=== PATIENT | male | born 1955 | race Caucasian/White ===

== ENCOUNTER 2022-03-29 16:51 | Emergency (ER) | payer OTHER ==
[~2022-03-29] VITALS: Ht 167 cm; Wt 72.0 kg
[2022-03-29 17:58] LABS: BASOPHILS % (AUTO) 0 % (0-10); EOSINOPHILS # (AUTO) 0.1 10^3/uL (0.0-0.3); EOSINOPHILS % (AUTO) 1 % (0-10); HEMATOCRIT 41 % (40-54); HEMOGLOBIN 13.9 g/dL (13.3-17.7); LYMPHOCYTES # (AUTO) 1.2 10^3/uL (1.0-4.0); LYMPHOCYTES % (AUTO) 15 % (12-44); MEAN CORPUSCULAR HEMOGLOBIN 31 pg (25-34); MEAN CORPUSCULAR HGB CONC 34 g/dL (32-36); MEAN CORPUSCULAR VOLUME 92 fL (80-99); MEAN PLATELET VOLUME 9.1 fL (9.0-12.2); MONOCYTES # (AUTO) 0.6 10^3/uL (0.0-1.0); MONOCYTES % (AUTO) 8 % (0-12); NEUTROPHILS # (AUTO) 5.9 10^3/uL (1.8-7.8); NEUTROPHILS % (AUTO) 76 % (42-75); PLATELET COUNT 190 10^3/uL (130-400); WHITE BLOOD COUNT 7.8 10^3/uL (4.3-11.0)
[2022-03-29] MEDS ORDERED: LACTATED RINGERS 1,000 ML IV ONE (18:00)
[2022-03-29] MEDS ORDERED: MECLIZINE 25 MG (ANTIVERT) TAB PO ONE (18:00)
[2022-03-29 18:04] LABS: ALBUMIN 3.7 GM/DL (3.2-4.5)
[2022-03-29 18:05] LABS: POTASSIUM 3.4 MMOL/L (3.6-5.0)
[2022-03-29 18:06] LABS: CALCIUM 8.5 MG/DL (8.5-10.1)
[2022-03-29 18:09] LABS: BILIRUBIN,TOTAL 0.6 MG/DL (0.1-1.0)
[2022-03-29 18:13] LABS: MAGNESIUM 1.9 MG/DL (1.6-2.4)
[2022-03-29 18:34] LABS: TSH (THYROID ANALYZER) 0.52 UIU/ML (0.35-4.94)
--- NOTE | 2022-03-29 18:50 | Diagnostic Imaging Report ---
EXAMINATION: CT head without contrast. TECHNIQUE: Multiple contiguous axial images were obtained through the brain without the use of intravenous contrast. All CT scans use one or more of the following dose optimizing techniques: automated exposure control, MA and/or KvP adjustment based on patient size and exam type or iterative reconstruction. HISTORY: Dizzy, Hearing loss, headache COMPARISON: None available. FINDINGS: Mild diffuse cerebral volume loss with proportional enlargement of the ventricles and sulci. No abnormal attenuation of brain parenchyma is present. No acute intracranial hemorrhage or abnormal extra-axial fluid collection is present. No hyperdense vessel. The calvarium is intact. The mastoid air cells are clear. The visualized paranasal sinuses are clear. The orbits are normal. IMPRESSION: No acute intracranial abnormality. Dictated by: Dictated on workstation # [id number]
[2022-03-29 19:13] LABS: CREATININE SERUM 0.89 MG/DL (0.60-1.30)
[2022-03-29] MEDS ORDERED: ONDANSETRON 4 MG/2 ML (SDV) Z0FRAN ONE (20:30)
[2022-03-29] MEDS ORDERED: ONDANSETRON 4 MG/2 ML (SDV) Z0FRAN IVP ONE (20:30)
[2022-03-29] MEDS ORDERED: ONDA4TAB11 SL (21:01)
[2022-03-29] MEDS ORDERED: MECL-149 PO (21:01)
--- NOTE | 2022-03-29 21:01 | ED Neurological Problem ---
General Chief Complaint: Dizziness/Syncope Stated Complaint: DIZZINESS, VOMITING Nursing Triage Note: pt states deafness in lt ear started sunday followed by dizziness and vomiting. hx of ear and sinus infections, cyst on the rt posterior neck that has moved over the past 2 weeks Source: patient, family Exam Limitations: no limitations History of Present Illness Date Seen by Provider: Mar 29, 2022 Time Seen by Provider: 17:40 Allergies and Home Medications Allergies Coded Allergies: No Known Drug Allergies (Unverified , 03/29/22) Patient Home Medication List Meclizine HCl (Meclizine HCl) 25 Mg Tablet, 25 MG PO Q6H PRN for DIZZINESS Prescribed by: RUFINO FERRELL on 03/29/222100 Ondansetron (Ondansetron Odt) 4 Mg Tab.rapdis, 4 MG SL Q4H PRN for NAUSEA/VOMITING Prescribed by: RUFINO FERRELL on 03/29/222100 Past Eoesdky-Ohlhhe-Jkoims Hx Patient Social History Tobacco Use?: No Substance use?: No Alcohol Use?: No Physical Exam Vital Signs Vital Signs - First Documented 03/29/22 17:06 Temp 36.6 Pulse 59 Resp 18 B/P (MAP) 161/83 (109) Pulse Ox 97 O2 Delivery Room Air Capillary Refill : Less Than 3 Seconds Height, Weight, BMI Height: '" Weight: lbs. oz. kg; 25.00 BMI Method: Progress/Results/Core Measures Results/Orders Lab Results Laboratory Tests Test 03/29/22 17:45 Range/Units White Blood Count 7.8 4.3-11.0 10^3/uL Red Blood Count 4.42 4.30-5.52 10^6/uL Hemoglobin 13.9 13.3-17.7 g/dL Hematocrit 41 40-54 % Mean Corpuscular Volume 92 80-99 fL Mean Corpuscular Hemoglobin 31 25-34 pg Mean Corpuscular Hemoglobin Concent 34 32-36 g/dL Red Cell Distribution Width 12.1 10.0-14.5 % Platelet Count 190 130-400 10^3/uL Mean Platelet Volume 9.1 9.0-12.2 fL Immature Granulocyte % (Auto) 0 % Neutrophils (%) (Auto) 76 H 42-75 % Lymphocytes (%) (Auto) 15 12-44 % Monocytes (%) (Auto) 8 0-12 % Eosinophils (%) (Auto) 1 0-10 % Basophils (%) (Auto) 0 0-10 % Neutrophils # (Auto) 5.9 1.8-7.8 10^3/uL Lymphocytes # (Auto) 1.2 1.0-4.0 10^3/uL Monocytes # (Auto) 0.6 0.0-1.0 10^3/uL Eosinophils # (Auto) 0.1 0.0-0.3 10^3/uL Basophils # (Auto) 0.0 0.0-0.1 10^3/uL Immature Granulocyte # (Auto) 0.0 0.0-0.1 10^3/uL Sodium Level 136 135-145 MMOL/L Potassium Level 3.4 L 3.6-5.0 MMOL/L Chloride Level 103 98-107 MMOL/L Carbon Dioxide Level 26 21-32 MMOL/L Anion Gap 7 5-14 MMOL/L Blood Urea Nitrogen 15 7-18 MG/DL Creatinine 0.89 0.60-1.30 MG/DL Estimat Glomerular Filtration Rate 95 BUN/Creatinine Ratio 17 Glucose Level 152 H 70-105 MG/DL Calcium Level 8.5 8.5-10.1 MG/DL Corrected Calcium 8.7 8.5-10.1 MG/DL Magnesium Level 1.9 1.6-2.4 MG/DL Total Bilirubin 0.6 0.1-1.0 MG/DL Aspartate Amino Transf (AST/SGOT) 21 5-34 U/L Alanine Aminotransferase (ALT/SGPT) 26 0-55 U/L Alkaline Phosphatase 69 40-136 U/L C-Reactive Protein High Sensitivity 0.05 0.00-0.50 MG/DL Total Protein 6.0 L 6.4-8.2 GM/DL Albumin 3.7 3.2-4.5 GM/DL TSH [place] Testing 0.52 0.35-4.94 UIU/ML SARS-CoV-2 RNA (RT-PCR) Not Detected Not Detecte My Orders Adriana - RUFINO PIERCE MD Cbc With Automated Diff (03/29/22 17:52) Comprehensive Metabolic Panel (03/29/22 17:52) Hs C Reactive Protein (03/29/22 17:52) Magnesium (03/29/22 17:52) Thyroid Analyzer (03/29/22 17:52) Ed Iv/Invasive Line Start (03/29/22 17:52) Ct Head Wo (03/29/22 17:52) Lactated Ringers (Lr 1000 Ml Iv Solution (03/29/22 18:00) Monitor-Rhythm Ecg Trace Only (03/29/22 17:53) Meclizine Tablet (Antivert Tablet) (03/29/22 18:00) Covid 19 Inhouse Test (03/29/22 18:38) Ondansetron Injection (Zofran Injectio (03/29/22 20:30) Ondansetron Injection (Zofran Injectio (03/29/22 20:30) Medications Given in ED Current Medications Medications Dose Ordered Sig/Claudette Route Start Time Stop Time Status Last Admin Dose Admin Lactated Ringer's 1,000 ml @ 0 mls/hr Q0M ONCE IV 03/29/22 18:00 03/29/22 18:01 DC 03/29/22 18:33 1,000 MLS/HR Meclizine HCl 25 mg ONCE ONCE PO 03/29/22 18:00 03/29/22 18:01 DC 03/29/22 18:33 25 MG Ondansetron HCl 8 mg ONCE ONCE IVP 03/29/22 20:30 03/29/22 20:31 DC 03/29/22 20:32 8 MG Vital Signs/I&O 03/29/22 17:06 Temp 36.6 Pulse 59 Resp 18 B/P (MAP) 161/83 (109) Pulse Ox 97 O2 Delivery Room Air Blood Pressure Mean: 109 Departure Impression Primary Impression: Vertigo Additional Impression: Hearing loss in left ear Qualified Codes: H91.92 - Unspecified hearing loss, left ear Disposition: HOME, SELF-CARE Condition: Improved Departure-Patient Inst. Decision time for Depature: 20:57 Referrals: PATIENCE SPARKS MD Patient Instructions: Vertigo (a Type of Dizziness) (DC), Meniere Disease Add. Discharge Instructions: Your dizziness appears to be vertigo, likely benign paroxysmal positional vertigo (BPPV). This is often treatable by Dottie maneuver. A handout is attached explaining how to do the Dottie maneuver at home. Several attempts may be necessary to cure the vertigo. Vertigo may return and the Dottie maneuver may need to be repeated. You may also treat your dizziness with meclizine purchased [id number]. Follow package instructions. If you have associated nausea, you may treat this with the Zofran (ondansetron) prescribed. This medication works quickly for nausea by dissolving under the to ngue. Please follow-up with your primary care provider soon as possible. Call tomorrow morning for an appointment. Please also follow-up with an audio visual collections coordinator (ENT) specialist as soon as possible. Dr. Sparks's contact is below for your convenience. Your hearing loss really needs to be evaluated by an ENT provider. Your hearing loss may or may not be related to the dizziness. Return to the ER if you have worsening symptoms despite following these instructions, especially if you develop additional neurologic symptoms such as increasing headache, vision changes, numbness or weakness of a body part, difficulty thinking, facial drooping, difficulty speaking, or any other notable neurologic change. Call your doctor with questions or concerns. All discharge instructions reviewed with patient and/or family. Voiced understanding. Scripts Meclizine HCl (Meclizine HCl) 25 Mg Tablet 25 MG PO Q6H PRN for DIZZINESS, #20 TAB Prov: RUFINO PIERCE MD 03/29/22 Ondansetron (Ondansetron Odt) 4 Mg Tab.rapdis 4 MG SL Q4H PRN for NAUSEA/VOMITING, #10 TAB Prov: RUFINO PIERCE MD 03/29/22 RUFINO PIERCE MD Mar 29, 2022 21:01
[2022-03-29 21:15] VITALS: BP 157/73
== END 2022-03-29 21:20 | disposition home or self-care (01) ==
LOC: EDUNIT# 16:51 → ER 16:53
DX: R42 Dizziness and giddiness (principal); H91.92 Unspecified hearing loss, left ear; Z20.822 Contact with and (suspected) exposure to COVID-19; Z28.310 Unvaccinated for COVID-19
CPT/HCPCS: 36415; 70450; 80053; 83735; 84443; 85025; 86141; 87636; 93041

== ENCOUNTER → 2022-08-31 | Outpatient (CLI) | payer OTHER ==
[~2022-08-31] MED LIST: GADOTERATE 0.5 MMOL/ML (CLARISCAN) 15 ML VIAL IV ONE; MECL-149 PO; ONDA4TAB11 SL
--- NOTE | 2022-08-31 14:03 | Diagnostic Imaging Report ---
MRI brain with and without contrast Technique: Multiplanar, multisequence MRI of the brain was performed with and without contrast. Indication: Sudden onset hearing loss. Comparison: None available. Findings: The diffusion series demonstrates no restriction to suggest acute ischemia. There is no MR evidence of acute intracranial hemorrhage. There is no evidence of intracranial mass effect or shift. Age-appropriate global cerebral volume loss is demonstrated. 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 Estevez and white matter signal characteristics are otherwise unremarkable. There is no abnormal extra-axial fluid collection. The ventricles are appropriate in size and configuration. The basilar cisterns are patent. Pituitary gland and pineal region appear normal. There is normal alignment of the craniocervical junction. There is no evidence of pathologic intracranial enhancement. Dedicated imaging through the level of the internal auditory canals demonstrates unremarkable course and caliber of the seventh and eighth cranial nerves. No cerebellar pontine angle mass lesion demonstrated. There is no abnormal seventh or eighth cranial nerve enhancement. There is no abnormal enhancement within the labyrinth. No signal abnormality demonstrated within the mastoids or region of the middle ear. No orbital abnormality evident on this nondedicated exam. The paranasal sinuses are clear. Expected arterial and dural venous sinus flow voids are preserved. Impression: 1. No MR evidence of an acute intracranial abnormality. There is no evidence of acute ischemia, hemorrhage, intracranial mass effect, hydrocephalus, or pathologic intracranial enhancement. 2. Age-appropriate global cerebral volume loss. Mild chronic microvascular ischemic changes are demonstrated throughout the white matter as well as several tiny remote subcortical infarcts. 3. Dedicated imaging through the level of the internal auditory canals demonstrates unremarkable course and caliber of the seventh and eighth cranial nerves. No cerebellar pontine angle mass lesion demonstrated. There is no abnormal seventh or eighth cranial nerve enhancement. There is no abnormal enhancement within the labyrinth. No signal abnormality demonstrated within the mastoids or region of the middle ear. Dictated by: Dictated on workstation # [id number]
== END ==
LOC: RAD 11:50
PROVIDERS: ATTEND Otolaryngology Otolaryngology/Facial Plastic Surgery
DX: G31.1 Senile degeneration of brain, not elsewhere classified (principal); H91.92 Unspecified hearing loss, left ear
CPT/HCPCS: 70553